=== PATIENT | female | born 2000 | race Asian ===

== ENCOUNTER 2019-08-10 11:37 | Emergency (ER) | payer OTHER ==
[~2019-08-10] VITALS: Ht 188 cm; Wt 117.9 kg
[2019-08-10 12:45] VITALS: BP 126/78; TEMP 98.3
== END 2019-08-10 12:45 | disposition home or self-care (01) ==
LOC: ED 11:37
DX: R30.0 Dysuria (principal)
CPT/HCPCS: 81000; 81025; 99283

== ENCOUNTER 2020-04-23 11:51 | Emergency (ER) | payer OTHER ==
[~2020-04-23] VITALS: Ht 188 cm; Wt 110.2 kg
[2020-04-23 12:00] VITALS: TEMP 99.1
[2020-04-23 12:36] LABS: PLATELET COUNT 341 K/uL (152-353)
[2020-04-23 12:46] LABS: POTASSIUM 3.6 mmol/L (3.6-5.2)
[2020-04-23 13:57] VITALS: BP 111/65
== END 2020-04-23 14:00 | disposition home or self-care (01) ==
LOC: ED 11:51
PROVIDERS: Emergency Medicine
DX: R07.89 Other chest pain (principal); D72.828 Other elevated white blood cell count; R11.2 Nausea with vomiting, unspecified
CPT/HCPCS: 36415; 80053; 81000; 81025; 82550; 82553; 84484; 85027; 85379; 93005; 96374; 99284; J2405

== ENCOUNTER 2021-04-18 01:42 | Emergency (ER) | payer OTHER | END 2021-04-18 04:10 | disposition home or self-care (01) | LOC: ED 01:42 | DX: S43.102A Unspecified dislocation of left acromioclavicular joint, initial encounter (principal); Y04.2XXA Assault by strike against or bumped into by another person, initial encounter; Y93.89 Activity, other specified; Y92.89 Other specified places as the place of occurrence of the external cause; R04.0 Epistaxis; S61.305A Unspecified open wound of left ring finger with damage to nail, initial encounter; E66.8 Other obesity | CPT/HCPCS: 81025; 96372; 99283; J1885 ==

== ENCOUNTER 2023-02-06 20:12 | Emergency (ER) | payer OTHER ==
[~2023-02-06] VITALS: Ht 182.9 cm; Wt 104.3 kg
[2023-02-06 20:15] VITALS: BP 125/86; TEMP 97.5
== END 2023-02-06 21:15 | disposition home or self-care (01) ==
LOC: ED 20:12
DX: J02.0 Streptococcal pharyngitis (principal)
CPT/HCPCS: 87502; 87651; 99283